=== PATIENT | female | born 1975 | race Caucasian/White ===

== ENCOUNTER 2018-01-17 10:30 | Emergency (ER) | payer BC ==
--- NOTE | 2018-01-17 10:57 | ED Physician Documentation ---
Low Back Pain - HISTORIAN Historian: patient - HPI Stated Complaint: low back pain Chief Complaint: Low Back Pain/ Injury History: history of chronic pain:, back pain Onset: days ago (2) Duration: continues in ED Recent Injury: No Context: lifting, turning, bending Severity: moderate Quality: sharp, dull Associated Symptoms: denies: fever, chills, sweating, constipation, incontinence, nausea, vomiting, problems urinating, difficulty walking, light-headedness, dizziness Worsened By:: movement to RT flexion, movement to LT flexion Relieved By: nothing Further Comments: yes (She has had issues with low back pain but states usually controlled. She reports increased pain over last few days. No new injury. She states that she has flexeril, torodol at home but she did not take that or OTC meds today. She missed work. Pain is increased with bending and sitting. She has not tried heat. No loss of control of bowel or bladder.) - ROS CONST: no problems - PAST HX Past History: back injury Surgeries/Procedures: none Immunizations: UTD Allergies/Adverse Reactions: Allergies Allergy/AdvReac Type Severity Reaction Status Date / Time No Known Allergies Allergy Verified 01/17/18 10:49 - SOCIAL HX Smoking History: non-smoker Alcohol Use: none Drug Use: none - FAMILY HX Family History: none - VITAL SIGNS Vital Signs: Vital Signs Temp Pulse Resp BP Pulse Ox 98.6 F 87 20 118/74 99 01/17/18 12:17 01/17/18 12:17 01/17/18 12:17 01/17/18 12:17 01/17/18 12:17 - REVIEWED ASSESSMENTS Nursing Assessment Reviewed: Yes Vitals Reviewed: Yes Progress - Progress Progress: 1200: discussed results and the fact she did drive herself here. She is agreeable DG ED Results Lab/Radiology - Radiology Radiology Impressions: Lumbar spine three views History: Low back pain Findings: The lumbar spine is unremarkable without fracture, disc space narrowing, spondylolysis, or spondylolisthesis. Electronically signed on Jan 17, 2018 11:55:26 AM CDT by: Ted Richmond - Orders Orders: ED Orders Category Date Time Status LUMBAR SPINE XR 2 OR 3 VIEWS [L SPINE 2 OR 3 VIEWS] [ Exams 01/17/18 Completed RAD] Stat Low Back Pain/Injury - Physical Exam General Appearance: no acute distress, alert EENT: eye inspection normal Neck: non-tender, painless ROM Resp/CVS: chest non-tender, breath sounds nml, heart sounds nml, no resp. distress, lungs clear Abdomen: non-tender, no organomegaly Back: non-tender, other (she was able to bed and move to get in wheelchair and bed. ) Rectal/Genital: nml ext.inspection Neuro/Psych: oriented x3, motor nml, sensation nml Skin: warm/dry, normal color Extremities: non-tender, normal range of motion, no evidence of injury, no edema Discharge Clincal Impression: Low back pain Qualifiers: Chronicity: chronic Back pain laterality: bilateral Sciatica presence: without sciatica Qualified Code(s): M54.5 - Low back pain Referrals: Primary Doctor,No [Primary Care Provider] - 2 Days Comments: 1. Mobic 7.5 mg take 1 by mouth daily 2. Robaxin 750 mg Take 1 by mouth daily 3. Medrol dose pack As directed 4. Ice/Heat 5. Follow up with PCP in 2-4 days 6. Return to ER for concerns Condition: Stable Disposition: 01 HOME, SELF-CARE Decision to Admit: NO Date of Decison to Admit: 01/17/18 Decision Time: 12:10
[2018-01-17 12:19] VITALS: BP 118/74
--- NOTE | 2018-01-17 12:52 | Diagnostic Imaging Report ---
TONYA JACKSON [facility] [address] [facility] [address] Report Submission Date: Jan 17, 2018 11:55:26 AM CDT Patient Study Name: NISHANT HARPER Date: Jan 17, 2018 11:35:42 AM CDT Modality Type: DX Gender: F Description: SPINE : 75 Institution: [facility] Physician: TONYA JACKSON Lumbar spine three views History: Low back pain Findings: The lumbar spine is unremarkable without fracture, disc space narrowing, spondylolysis, or spondylolisthesis. Electronically signed on Jan 17, 2018 11:55:26 AM CDT by: Ted CHAUDHRY
== END 2018-01-17 12:17 | disposition home or self-care (01) ==
LOC: ED 10:30
DX: M54.5 Low back pain (principal)
CPT/HCPCS: 72100

== ENCOUNTER 2018-02-09 19:02 | Emergency (ER) | payer BC ==
[2018-02-09] MEDS ORDERED: MAG HYDROX/ALUMINUM HYD/SIMETH 30 ML, Lidocaine 2%Visc 15ml 20 MG, PHENobarb/HYOSCY/ATR... PO ONE ×3 (19:20)
--- NOTE | 2018-02-09 19:24 | ED Physician Documentation ---
General Adult - HISTORIAN Historian: patient - HPI Stated Complaint: stomach burning Chief Complaint: General Adult Additional Information: Burning epigastric/upper abdomen pain since 02/05. Has taken 2 Tums every four hours w/o relief. Has had similar, less severe pain in the past. does not take PPI regularly. Denies waterbrash, urinary frequency or dysuria. No other modifying factors or associated signs. HX anxiety, HTN, blood clots. - ROS CONST: no problems - PAST HX Past History: other (above ) Allergies/Adverse Reactions: Allergies Allergy/AdvReac Type Severity Reaction Status Date / Time No Known Allergies Allergy Verified 02/09/18 19:18 Home Medications: Ambulatory Orders Medication Instructions Recorded Mag Hydrox/Aluminum Hyd/Simeth 20 ml PO Q8H PRN #360 ml 02/09/18 [Mylanta] Omeprazole 20 mg PO DAILY #30 tablet. 02/09/18 - SOCIAL HX Smoking History: non-smoker - FAMILY HX Family History: No - VITAL SIGNS Vital Signs: Vital Signs Temp Pulse Resp BP Pulse Ox 118/74 01/17/18 12:17 - REVIEWED ASSESSMENTS Nursing Assessment Reviewed: Yes Vitals Reviewed: Yes Progress - Progress Progress: Explained to patient that she should not be taking ASA, NSAID's, with severe heartburn. She insists as the alternative is a "blood thinner," given she has a HX of blood clots. Suggested she make appointment at clinic next door so that she has a primary provider. ED Results Lab/Radiology - Orders Orders: ED Orders Category Date Time Status Gi Cocktail Med 02/09/18 19:20 Ordered Mag Hydrox/Aluminum Hyd/Simeth [Mylanta] 30 ml Lidocaine 2%Visc 15ml [Xylocaine] 20 mg PHENobarb/HYOSCY/ATROPINE/SCOP [] 10 ml PO NOW Pantoprazole Sodium [Protonix] Med 02/09/18 19:20 Once 40 mg PO NOW ONE General Adult Physical Exam - PHYSICAL EXAM GENERAL APPEARANCE: mild distress EENT: eye inspection normal, pharynx normal NECK: normal inspection RESPIRATORY: no resp distress, breath sounds normal CVS: reg rate & rhythm, heart sounds normal ABDOMEN: soft, normal bowel sounds BACK: normal inspection SKIN: warm/dry, normal color EXTREMITIES: normal range of motion (gait and stance), no evidence of injury NEURO: CN's nml as tested, motor nml, sensation nml, cognition normal Discharge Clincal Impression: Heartburn Prescriptions: Mag Hydrox/Aluminum Hyd/Simeth [Mylanta] 20 ml PO Q8H PRN #360 ml PRN Reason: Heartburn Omeprazole 20 mg PO DAILY #30 tablet. Referrals: Primary Doctor,No [Primary Care Provider] - 2 Days Condition: Fair Disposition: HOME, SELF-CARE Decision to Admit: NO Decision Time: 20:10
[2018-02-09] MEDS: PANTOPRAZOLE SODIUM 40 MG TABLET PO ONE (19:41)
[2018-02-09] MEDS: MAGNESIUM, ALUMINUM HYDROXIDE 30 ML UDC PO ONE (19:41)
[2018-02-09] MEDS: Lidocaine 2%Visc 15ml 20 MG/ML UDC ONE (19:41)
[2018-02-09] MEDS: MAG HYDROX/ALUMINUM HYD/SIMETH 30 ML UDC PO ONE (20:20)
[2018-02-09 21:47] VITALS: BP 141/92
== END 2018-02-09 20:25 | disposition home or self-care (01) ==
LOC: ED 19:02
DX: R12 Heartburn (principal)
CPT/HCPCS: A9270-GY